=== PATIENT | female | born 1950 | race Caucasian/White ===

== ENCOUNTER 2017-05-05 19:13 | Inpatient (IN) | payer MEDICARE, OTHER ==
[~2017-05-05] VITALS: Ht 170.2 cm; Wt 94.6 kg
[~2017-05-05 19:13] MED LIST: ADVAIR 100-501 EACH INH; CEFDINIR300 MG PO; FOSAMAX70 MG PO; MUCINEX 600MG600 MG PO; PREDNISONE 10MG10 MG PO; PROAIR HFA8.5 GM INH; SINGULAIR10 MG PO; SPIRIVA18 MCG INH; SYNTHROID100 MCG PO; VENTOLIN (2.5 MG/3 M INH
[2017-05-05 19:55] LABS: BASOPHIL 0.1 % (0-2); EOSINOPHIL 0 % (0-7); HCT 42.8 % (37.0-47.0); LYMPHOCYTE 10.4 % (15-48); MCH 29.5 pg (25.0-31.0); MCHC 32.7 g/dL (32.0-36.0); MCV 90.1 fL (78.0-100.0); MONOCYTE 13.3 % (0-12); MPV 10.1 fL (6.0-9.5); NEUTROPHIL 76.2 % (41-80); PLT 301 K/uL (150-400); RBC 4.75 M/uL (4.20-5.40); RDW 14.5 % (11.5-14.0); WBC 24.2 K/uL (4.0-10.5)
[2017-05-05 20:03] LABS: ALBUMIN 3.7 g/dL (3.4-4.8); BILIRUBIN - TOTAL 0.7 mg/dL (0.1-1.0); GLOBULIN (CALCULATION) 3.5 g/dL (2.2-4.2); POTASSIUM 3.7 mmol/L (3.5-5.1); TOTAL PROTEIN 7.2 g/dL (6.4-8.3)
[2017-05-05 20:24] LABS: INR 1.18 (0.9-1.2); PROTHROMBIN TIME 14.1 SECONDS (11.4-13.2); PTT 34.3 SECONDS (24.3-32.1)
[2017-05-05 20:25] LABS: D-DIMER 0.51 ug/mLFEU (0.00-0.41)
[2017-05-05 20:34] LABS: LACTIC ACID 1.3 mmol/L (0.5-2.2)
[2017-05-05 21:32] LABS: CLARITY CLEAR (CLEAR); COLOR YELLOW (YELLOW)
[2017-05-05 21:33] LABS: BILIRUBIN 1+ mg/dL (NEGATIVE); BLOOD 3+ Ery/uL (NEGATIVE); GLUCOSE (U) NORMAL (NORMAL); KETONE (U) 1+ (SMALL) mg/dL (NEGATIVE); LEUKOCYTES NEGATIVE Leu/uL (NEGATIVE); NITRITE NEGATIVE (NEGATIVE); PROTEIN 2+ mg/dL (NEGATIVE); SPECIFIC GRAVITY 1.025 (1.001-1.030); pH 5.5 (5.0-9.0)
[2017-05-06 05:53] LABS: HCT 39.8 % (37.0-47.0); HGB 12.9 g/dl (12.5-16.0); MCH 29.3 pg (25.0-31.0); MCHC 32.4 g/dL (32.0-36.0); MCV 90.5 fL (78.0-100.0); MPV 10.3 fL (6.0-9.5); RBC 4.4 M/uL (4.20-5.40); RDW 14.4 % (11.5-14.0)
[2017-05-06 06:03] LABS: WBC 21.6 K/uL (4.0-10.5)
[2017-05-06 06:17] LABS: CREATININE 0.9 mg/dL (0.5-1.0)
[2017-05-08 06:05] LABS: HCT 36.2 % (37.0-47.0); HGB 11.9 g/dl (12.5-16.0); MCH 29.5 pg (25.0-31.0); MCHC 32.9 g/dL (32.0-36.0); MCV 89.8 fL (78.0-100.0); MPV 10.4 fL (6.0-9.5); RBC 4.03 M/uL (4.20-5.40); RDW 14.7 % (11.5-14.0)
[2017-05-08 06:14] LABS: WBC 25.9 K/uL (4.0-10.5)
[2017-05-08 06:21] LABS: BILIRUBIN - TOTAL 0.2 mg/dL (0.1-1.0); CREATININE 0.9 mg/dL (0.5-1.0); GLOBULIN (CALCULATION) 2.5 g/dL (2.2-4.2); MAGNESIUM 2.35 mg/dL (1.40-2.10); PHOSPHORUS 2.2 mg/dL (2.7-4.5); POTASSIUM 3.7 mmol/L (3.5-5.1); TOTAL PROTEIN 5.5 g/dL (6.4-8.3)
[2017-05-09 05:58] LABS: HGB 12.1 g/dl (12.5-16.0); MCH 29.4 pg (25.0-31.0); MCHC 32.7 g/dL (32.0-36.0); MPV 10.3 fL (6.0-9.5); RBC 4.11 M/uL (4.20-5.40); RDW 14.9 % (11.5-14.0)
[2017-05-09 05:59] LABS: WBC 25.7 K/uL (4.0-10.5)
[2017-05-09 06:19] LABS: BILIRUBIN - TOTAL 0.3 mg/dL (0.1-1.0); CREATININE 0.9 mg/dL (0.5-1.0); GLOBULIN (CALCULATION) 2.9 g/dL (2.2-4.2); MAGNESIUM 2.3 mg/dL (1.40-2.10); PHOSPHORUS 2.2 mg/dL (2.7-4.5); POTASSIUM 3.2 mmol/L (3.5-5.1); TOTAL PROTEIN 5.9 g/dL (6.4-8.3)
[2017-05-10 06:13] LABS: BASOPHIL 0.6 % (0-2); EOSINOPHIL 0 % (0-7); HGB 12.8 g/dl (12.5-16.0); MCH 29.6 pg (25.0-31.0); MCHC 32.8 g/dL (32.0-36.0); MCV 90.1 fL (78.0-100.0); MONOCYTE 10.9 % (0-12); MPV 10.2 fL (6.0-9.5); NEUTROPHIL 63.5 % (41-80); PLT 361 K/uL (150-400); RBC 4.33 M/uL (4.20-5.40); RDW 14.9 % (11.5-14.0)
[2017-05-10 06:17] LABS: WBC 23.3 K/uL (4.0-10.5)
[2017-05-10 06:24] LABS: BILIRUBIN - TOTAL 0.4 mg/dL (0.1-1.0); CREATININE 0.9 mg/dL (0.5-1.0); GLOBULIN (CALCULATION) 2.5 g/dL (2.2-4.2); POTASSIUM 3.4 mmol/L (3.5-5.1); TOTAL PROTEIN 5.5 g/dL (6.4-8.3)
== END 2017-05-11 15:07 | disposition other institution (70) | DRG 871 ==
LOC: FER 19:13 → FMS 22:30 → FTCU 22:30 → FMS 05-06 10:51
PROVIDERS: Emergency Medicine Emergency Medical Services; Hospitalist; Internal Medicine; ADMIT Internal Medicine
DX: A41.9 Sepsis, unspecified organism (principal); J96.21 Acute and chronic respiratory failure with hypoxia; J44.1 Chronic obstructive pulmonary disease with (acute) exacerbation; Z85.3 Personal history of malignant neoplasm of breast; E03.9 Hypothyroidism, unspecified; I10 Essential (primary) hypertension; Z87.891 Personal history of nicotine dependence; E78.5 Hyperlipidemia, unspecified
CPT/HCPCS: 36415; 36600; 71010; 71275; 80048; 80053; 81001; 82803; 83605; 83735; 84100; 84484; 85025; 85379; 85610; 85730; 87040; 87070; 87088; 87205; 87804; 87899; 93005; 94010; 94640; 94667; 94668; 94760; J0456; J1956; J2405; J2930; Q9967